=== PATIENT | male | born 1980 | race Hispanic/Latino ===

== ENCOUNTER 2017-07-31 21:48 | Emergency (ER) | payer SELFPAY ==
[2017-07-31 21:58] VITALS: BP 140/89; TEMP 98.2; O2SAT 99
[2017-07-31] MEDS ORDERED: Sodium Chloride 0.9% 1,000 ML IV STA (22:22)
[2017-07-31] MEDS ORDERED: diaZEpam 10 mg/2 ml Inj IVP STA (22:22)
[2017-07-31 22:47] LABS: BASO # 0.1 K/uL (0.0-0.2); BASO % 1.2 % (0.0-2.0); EOS # 0.1 K/uL (0.0-0.7); EOS % 1.7 % (0.0-4.0); HEMOGLOBIN 12.6 g/dL (12.0-18.0); LYMPH # 2.4 K/uL (1.0-4.3); LYMPH % 30.4 % (20.0-40.0); MEAN CELL VOLUME 85.7 fl (80.0-94.0); MEAN CORPUSCULAR HEMOGLOBIN 28.7 pg (27.0-31.0); MEAN CORPUSCULAR HGB CONC 33.5 g/dL (33.0-37.0); MEAN PLATELET VOLUME 7.6 fl (7.2-11.7); MONO # 0.6 K/uL (0.0-0.8); MONO % 7.3 % (0.0-10.0); NEUT # 4.7 K/uL (1.8-7.0); NEUT % 59.4 % (50.0-75.0); NRBC % 0.1 % (0.0-0.0); RBC 4.38 Mil/uL (4.40-5.90); RED CELL DISTRIBUTION WIDTH 12.1 % (11.5-14.5)
[2017-07-31 22:59] LABS: ALBUMIN 4.7 g/dL (3.5-5.0); ALT/SGPT 40 U/L (21-72); AST/SGOT 26 U/L (17-59); BLOOD UREA NITROGEN 12 mg/dl (9-20); CALCIUM 9.8 mg/dL (8.4-10.2); GFR AFRICAN-AMERICAN > 60; GFR NON-AFRICAN AMERICAN > 60
[2017-07-31 23:00] LABS: ALB/GLOB RATIO 1.3 (1.0-2.1)
--- NOTE | 2017-08-01 00:23 | ED PDOC ---
HPI: General Adult Time Seen by Provider: 07/31/17 22:00 Chief Complaint (Nursing): Back Pain Chief Complaint (Provider): Right chest pain, back pain History Per: Patient History/Exam Limitations: no limitations Onset/Duration Of Symptoms: Days Have you had recent travel within the past 21 days to any of the following countries: [place], [place], [place] or [place]?: No Current Symptoms Are (Timing): Still Present Additional Complaint(s): Pt reports generalized back pain for a few days. Pt states a few hours ago it began much worse. Pt states he cannot breath and has shapr right sided chest pain with inspiration if he sits up straight. Denies similar pain in the past. Past Medical History Reviewed: Historical Data, Nursing Documentation, Vital Signs Vital Signs: Last Vital Signs Temp 98.2 F 07/31/17 21:54 Pulse 16 L 07/31/17 21:54 Resp 84 H 07/31/17 21:54 BP 140/89 07/31/17 21:54 Pulse Ox 99 07/31/17 21:54 - Medical History PMH: No Chronic Diseases - Surgical History Surgical History: No Surg Hx - Family History Family History: States: No Known Family Hx - Home Medications Home Medications: Ambulatory Orders Medication Instructions Recorded Naproxen [Naprosyn] 500 mg PO BID #20 tab 10/11/15 tiZANidine [Zanaflex] 4 mg PO Q8H PRN #20 tab 10/11/15 diaZEpam [Valium] 5 mg PO Q8 #12 tab 11/14/15 Naproxen 375 mg PO Q8 PRN #21 tab 12/13/15 Ibuprofen [Motrin Tab] 800 mg PO Q6H PRN #20 tab 08/01/17 diaZEpam [Valium] 5 mg PO Q6H PRN #15 tab 08/01/17 - Allergies Allergies/Adverse Reactions: Allergies Allergy/AdvReac Type Severity Reaction Status Date / Time No Known Allergies Allergy Verified 10/11/15 12:25 Review of Systems ROS Statement: Except As Marked, All Systems Reviewed And Found Negative Constitutional: Negative for: Fever, Chills Cardiovascular: Negative for: Chest Pain Respiratory: Negative for: Cough, Shortness of Breath Physical Exam - Reviewed Nursing Documentation Reviewed: Yes Vital Signs Reviewed: Yes - Physical Exam Appears: Positive for: Well, Non-toxic, No Acute Distress Head Exam: Positive for: ATRAUMATIC, NORMAL INSPECTION, NORMOCEPHALIC Skin: Positive for: Normal Color, Warm, DRY Eye Exam: Positive for: Normal appearance ENT: Positive for: Normal ENT Inspection Neck: Positive for: Normal, Painless ROM Cardiovascular/Chest: Positive for: Regular Rate, Rhythm, Chest Non Tender Respiratory: Positive for: Normal Breath Sounds. Negative for: Accessory Muscle Use, Respiratory Distress Gastrointestinal/Abdominal: Positive for: Normal Exam, Bowel Sounds, Soft Back: Positive for: Normal Inspection Extremity: Positive for: Normal ROM Neurologic/Psych: Positive for: Alert, Oriented - Laboratory Results Result Diagrams: 07/31/17 22:44 07/31/17 22:44 - ECG O2 Sat by Pulse Oximetry: 99 Pulse Ox Interpretation: Normal Disposition - Clinical Impression Clinical Impression: Back pain - Patient ED Disposition Is Patient to be Admitted: No Counseled Patient/Family Regarding: Diagnosis, Need For Followup, Rx Given - Disposition Disposition: Routine/Home Disposition Time: 00:18 Condition: GOOD Prescriptions: diaZEpam [Valium] 5 mg PO Q6H PRN #15 tab PRN Reason: Pain Ibuprofen [Motrin Tab] 800 mg PO Q6H PRN #20 tab PRN Reason: Pain Instructions: Musculoskeletal Pain (ED)
[2017-08-01 00:24] VITALS: PULSE 84; RESP 16
--- NOTE | 2017-08-01 10:40 | RAD ---
HISTORY: chest pain COMPARISON: 11/14/2015 TECHNIQUE: Chest PA and lateral FINDINGS: LUNGS: No active pulmonary disease. PLEURA: No significant pleural effusion identified. No pneumothorax apparent. CARDIOVASCULAR: Normal. OSSEOUS STRUCTURES: No significant abnormalities. VISUALIZED UPPER ABDOMEN: Normal. OTHER FINDINGS: None. IMPRESSION: No active disease.
--- NOTE | 2017-08-01 10:51 | CARD ---
APPROVED REPORT EKG Measurement Heart [id number] <Conclusion> Normal sinus rhythm with sinus arrhythmia Normal ECG
== END 2017-08-01 00:32 | disposition home or self-care (01) ==
LOC: H.ER 21:48
DX: M54.9 Dorsalgia, unspecified (principal); R07.89 Other chest pain
CPT/HCPCS: 71046; 80053; 85025; 85378; 93005; 96360; 99283; J1885; J7040

== ENCOUNTER 2018-06-18 21:36 | Emergency (ER) | payer BC ==
--- NOTE | 2018-06-18 22:53 | ED PDOC ---
Lower Extremity Pain/Injury Time Seen by Provider: 06/18/18 22:44 Chief Complaint (Nursing): Lower Extremity Problem/Injury Chief Complaint (Provider): Left Hip Pain History Per: Patient History/Exam Limitations: no limitations Onset/Duration Of Symptoms: Days (x1 (today- since this AM)) Current Symptoms Are (Timing): Still Present Severity: Moderate Pain Scale Rating Of: 7 Additional Complaint(s): Patient is a 37 year old male with no significant medical history who presents for evaluation of left hip pain, onset this morning upon waking. Patient reports that the pain is localized to the hip and worsens with movement or bearing weight. Patient denies any falls or trauma. Patient reports a history of similar symptoms about three years ago which resolved spontaneously- patient was never evaluated at that time. Patient took two tablets of Tylenol at 8pm tonight with no relief of symptoms, prompting ED visit. No other complaints offered at this time. Denies fever, chills, falls, trauma. PMD: [place] Past Medical History Reviewed: Historical Data, Nursing Documentation, Vital Signs Vital Signs: Last Vital Signs Temp 98.2 F 06/18/18 21:50 Pulse 82 06/18/18 21:50 Resp 16 06/18/18 21:50 BP 130/83 06/18/18 21:50 Pulse Ox 97 06/18/18 21:50 - Medical History Other PMH: Tendonitis of B/L shoulder - Surgical History Surgical History: No Surg Hx - Family History Family History: States: Unknown Family Hx - Living Arrangements Living Arrangements: With Family - Home Medications Home Medications: Ambulatory Orders Medication Instructions Recorded Naproxen [Naprosyn] 500 mg PO BID #20 tab 10/11/15 RX: tiZANidine [Zanaflex] 4 mg PO Q8H PRN #20 tab 10/11/15 diaZEpam [Valium] 5 mg PO Q8 #12 tab 11/14/15 RX: Naproxen 375 mg PO Q8 PRN #21 tab 12/13/15 Ibuprofen [Motrin Tab] 800 mg PO Q6H PRN #20 tab 08/01/17 diaZEpam [Valium] 5 mg PO Q6H PRN #15 tab 08/01/17 Cyclobenzaprine [Cyclobenzaprine 10 mg PO Q8 PRN #12 tab 06/18/18 HCl] RX: Naproxen 500 mg PO BID PRN #20 tab 06/18/18 - Allergies Allergies/Adverse Reactions: Allergies Allergy/AdvReac Type Severity Reaction Status Date / Time No Known Allergies Allergy Verified 06/18/18 21:50 Review of Systems ROS Statement: Except As Marked, All Systems Reviewed And Found Negative Musculoskeletal: Positive for: Other (Hip pain - left) Physical Exam - Reviewed Nursing Documentation Reviewed: Yes Vital Signs Reviewed: Yes - Physical Exam Appears: Positive for: Well, Non-toxic, No Acute Distress Head Exam: Positive for: ATRAUMATIC, NORMOCEPHALIC Skin: Positive for: Normal Color, Warm, Dry ENT: Positive for: Other (Mucus membranes moist. Airway patent, (-) stridor. ) Neck: Positive for: Painless ROM, Supple Cardiovascular/Chest: Positive for: Regular Rate, Rhythm Respiratory: Positive for: Normal Breath Sounds. Negative for: Respiratory Distress Extremity: Positive for: Tenderness (to proximal IT band and lateral left hip), Other (sensation intact throughout (+) distal pulses and sensation. Remainder of lower extremity nontender with FROM. ). Negative for: Normal ROM (decreased flexion and internal rotation of hip secondary to pain otherwise ROM intact), Calf Tenderness, Deformity, Swelling (or erythema, ecchymosis, warmth) Neurologic/Psych: Positive for: Alert, Oriented (x3), Gait (limping in ED). Negative for: Aphasia, Facial Droop - ECG O2 Sat by Pulse Oximetry: 97 (RA) Pulse Ox Interpretation: Normal Medical Decision Making Medical Decision Making: Initial Impression: acute hip pain, IT Band tendonitis Plan: -Toradol 30mg IM -Flexeril 10mg PO (not driving ) -Re-evaluation 3010 On re-evaluation, patient reports improvement of symptoms. On exam, patient remains AAOx3, in no acute distress. Lungs clear to auscultation, cardiac RRR, repeat neuro exam shows no focal findings. Vitals stable. Lab/Diagnostic results d/w the patient in great detail. Diagnosis of acute hip pain, IT band tendonitis d/w the patient. Based on history, exam and diagnostic results, plan will be for outpatient follow up with PMD/ortho. Patient instructed to follow-up with pmd / referral provided / the clinic in 1- 2 days without fail. Advised to take medication as prescribed. Return to the emergency room at any time for any new or worsening symptoms. Patient states he fully agrees with and understands discharge instructions. States that he agrees with the plan and disposition. Verbalized and repeated discharge instructions and plan. I have given the patient opportunity to ask any additional questions. Disposition - Clinical Impression Clinical Impression: Acute hip pain, Iliotibial band tendinitis of left side - Patient ED Disposition Is Patient to be Admitted: No Counseled Patient/Family Regarding: Studies Performed, Diagnosis, Need For Followup, Rx Given - Disposition Referrals: Rohit Olmstead MD [Staff Provider] - Abner Escobedo MD [Non-Staff] - Disposition: Routine/Home Disposition Time: 23:55 Condition: IMPROVED Additional Instructions: The emergency medical care you received today was directed at your acute symptoms. If you were prescribed any medication, please fill it and take as directed. It may take several days for your symptoms to resolve. Return to the Emergency Department if your symptoms worsen, do not improve, or if you have any other problems. Please contact your doctor in 2 days for re-evaluation and follow up / or call one of the physicians/clinics you have been referred to that are listed on the Patient Visit Information form that is included in your discharge packet. Bring any paperwork you were given at discharge with you along with any medications you are taking to your follow up visit. Our treatment cannot replace ongoing medical care by a primary care provider (PCP) outside of the emergency department. Prescriptions: Cyclobenzaprine [Cyclobenzaprine HCl] 10 mg PO Q8 PRN #12 tab PRN Reason: Muscle Spasm RX: Naproxen 500 mg PO BID PRN #20 tab PRN Reason: Pain, Moderate (4-7) Instructions: Tendinopathy, Hip Pain, Iliotibial Band Syndrome (DC), Tendonitis (DC) Forms: [employer] (Korean) Print Language: ECUADOREAN - POA Present On Arrival: None
[2018-06-19 01:21] VITALS: BP 130/83; PULSE 82; RESP 16; TEMP 98.2; O2SAT 97
== END 2018-06-19 00:02 | disposition home or self-care (01) ==
LOC: H.ER 21:36
DX: M25.552 Pain in left hip (principal); M76.32 Iliotibial band syndrome, left leg
CPT/HCPCS: 96372; 99283; J1885